=== PATIENT | female | born 1980 | race Caucasian/White ===

== ENCOUNTER 2016-08-24 16:39 | Emergency (ER) | payer BC ==
[2016-08-24 16:51] VITALS: BP 124/74
[2016-08-24 17:43] LABS: CHLORIDE,CL 105 mmol/L (98-107); SODIUM,NA 131 mmol/L (136-145)
[2016-08-24] MEDS ORDERED: Ibuprofen 200 MG Tab PO ONE (18:07)
--- NOTE | 2016-08-26 00:59 | ER ---
Date of Service: 08/24/2016 HISTORY: Mellissa presents to the emergency room with complaints of swelling and discomfort to the posterior aspect of her left ankle, worse with flexion and extension. She states that this started approximately 4 weeks ago and was seen in the clinic twice for this. She states that she was diagnosed with tendinitis but has not had any significant improvement in the discomfort. She did have a D- dimer performed which was negative. She states that when she flexes and extends her foot, it feels as though it "sticks". She states that she has not been experiencing any fever, chills, or erythema to the area. PAST MEDICAL HISTORY: None. MEDICATIONS: None. ALLERGIES: Penicillin, shellfish, and sulfa. REVIEW OF SYSTEMS: General: No fever or chills. Musculoskeletal: Please see history of present illness. She denies any numbness or tingling distal to the area of injury. PHYSICAL EXAMINATION: General: This is a 36-year-old female patient, in no acute distress. Vital Signs: Heart rate is 102, temperature is 37.4, blood pressure is 124/74, respiratory rate 16, O2 saturations 97%. Skin: Warm, pink, and dry. Musculoskeletal: The patient does have tenderness on palpation of the distal Achilles tendon. No evidence of any acute rupture noted. No erythema noted. There is some mild edema. Remainder of her physical examination is within normal limits. ASSESSMENT: Achilles tendinitis. PLAN: The patient will be discharged. I did speak with Orthopedics regarding this and we will put the patient in a Cam walker. She was referred to Physical Therapy. Ibuprofen 600 mg every 6 hours. All questions were answered. MWK: 08/25/2016 18:49:39 MODL: 08/26/2016 00:52:19 /[id number]
== END 2016-08-24 18:19 | disposition home or self-care (01) ==
LOC: VM.ED 16:39
DX: M76.62 Achilles tendinitis, left leg (principal); Z88.0 Allergy status to penicillin; Z91.013 Allergy to seafood
CPT/HCPCS: 36415; 73610; 80053; 84550; 85025; 86140; 99283; A9270

== ENCOUNTER 2017-03-07 09:31 | Emergency (ER) | payer BC ==
--- NOTE | 2017-03-07 10:00 | EDM.PDOC ---
ED HPI GENERAL MEDICAL PROBLEM - General Stated Complaint: POSSIBLE INFLUENZA Time Seen by Provider: 03/07/17 09:40 Source of Information: Reports: Patient History Limitations: Reports: No Limitations - History of Present Illness INITIAL COMMENTS - FREE TEXT/NARRATIVE: Patient comes in today with a 1 day history of body aches, chest congestion, mucus production and low-grade fever 99-100 at the highest. Patient states she' s been around individuals who have been ill but does not recollect anyone have an influenza. Patient denies any nausea or vomiting. States that she does become short of breath with exertion and has a decreased appetite. Pt has no significant medical history. Onset: Sudden Duration: Day(s): Severity: Mild Associated Symptoms: Reports: Cough, cough w sputum, Fever/Chills, Headaches, Malaise. Denies: Diaphoresis, Nausea/Vomiting, Syncope, Weakness - Related Data Allergies Allergy/AdvReac Type Severity Reaction Status Date / Time Penicillins Allergy Hives Verified 08/24/16 16:46 shellfish derived Allergy Other Verified 08/24/16 16:46 Sulfa (Sulfonamide Allergy Hives Verified 08/24/16 16:46 Antibiotics) Home Meds: Home Meds . 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 Denies: Night Sweats, Weight Loss, Weight Gain HEENT: Reports: No Symptoms Respiratory: Reports: Pleuritic Chest Pain, Cough, Sputum Cardiovascular: Denies: Chest Pain, Blood Pressure Problem, Claudication, Edema , Lightheadedness, Orthopnea, Palpitations, PND Endocrine: Reports: No Symptoms GI/Abdominal: Denies: Abdominal Pain, Anorexia, Diarrhea, Difficulty Swallowing , Distension, Flatus, Hematemesis, Hematochezia, Mucous in Stool, Nausea, Stool Incontinence : Reports: No Symptoms Musculoskeletal: Reports: No Symptoms Skin: Reports: No Symptoms Neurological: Reports: No Symptoms ED EXAM, GENERAL - Physical Exam Exam: See Below Exam Limited By: No Limitations General Appearance: Alert, WD/WN Neck: Normal Inspection, Supple, Non-Tender, Full Range of Motion Respiratory/Chest: No Respiratory Distress, Lungs Clear, Normal Breath Sounds, No Accessory Muscle Use, Chest Non-Tender Cardiovascular: Normal Peripheral Pulses, Regular Rate, Rhythm, No Edema, No Gallop, No JVD, No Murmur, No Rub GI/Abdominal: Normal Bowel Sounds, Soft, Non-Tender, No Organomegaly, No Distention, No Abnormal Bruit Back Exam: Normal Inspection, Full Range of Motion Extremities: Normal Inspection, Normal Range of Motion Neurological: Alert, Oriented, CN II-XII Intact, Normal Cognition, Normal Gait, Normal Reflexes, No Motor/Sensory Deficits Psychiatric: Normal Affect, Normal Mood Skin Exam: Dry, Intact, Normal Color, No Rash Course - Vital Signs Last Recorded V/S: Last Vital Signs Temp 37.2 C 03/07/17 09:35 Pulse 100 03/07/17 09:35 Resp 16 03/07/17 09:35 BP 140/91 H 03/07/17 09:35 Pulse Ox 99 03/07/17 09:35 Departure - Departure Time of Disposition: 10:38 Disposition: Home, Self-Care 01 Condition: Good Clinical Impression: URI (upper respiratory infection) Qualifiers: URI type: unspecified viral URI Qualified Code(s): J06.9 - Acute upper respiratory infection, unspecified - Discharge Information Instructions: Upper Respiratory Infection, Adult, [id number] Forms: ED Department Discharge Additional Instructions: increase water intake ensure you are getting enough rest Avoid anyone who may have a low immune system, infants, or elderly May be contagious up to 24 hours after fever has disappeared Follow up with your PCP if not better after 7-8 days with the illness or if fever increases to greater than 103-104 Use OTC tylenol and Ibuprofen for any fever or pain take as prescribed on the bottle to prevent overdosing You are able to take OTC nasal or chest decongestive for symptom relief. If nausea or vomiting arise. Decrease food intake for 24 hours and focus on maintaining good water intake.
[2017-03-07 10:30] VITALS: BP 140/91
== END 2017-03-07 10:55 | disposition home or self-care (01) ==
LOC: VM.ED 09:31
DX: J06.9 Acute upper respiratory infection, unspecified (principal); Z88.0 Allergy status to penicillin; Z91.013 Allergy to seafood; Z88.2 Allergy status to sulfonamides
CPT/HCPCS: 87804; 99283

== ENCOUNTER 2020-06-24 08:28 | Emergency (ER) | payer BC, OTHER ==
[2020-06-24] MEDS ORDERED: Ketorolac 30 MG/ML SDV IVPUSH ONE (08:40)
[2020-06-24] MEDS ORDERED: Ondansetron 4 MG/2 ML SDV IVPUSH ONE (08:40)
--- NOTE | 2020-06-24 09:25 | CR ---
[id number] RAD/RAD Ankle Left 3V Min Exam: RAD Ankle Left 3V Min Indication:INJURY/PAIN. Comparison: 2017. Discussion/Impression: Soft tissue swelling over lateral malleolus. No evidence of acute fracture. Chronically avulsed fracture fragment at the tip of the fibula was present in 2017. Peter Cote MD 06/24/20 0924 Thank you for allowing us to participate in the care of your patient.
[2020-06-24] MEDS ORDERED: Morphine 4 MG/ML Syringe IVPUSH ONE (09:31)
--- NOTE | 2020-06-24 09:37 | EDM.PDOC ---
ED HPI GENERAL MEDICAL PROBLEM - General Chief Complaint: Lower Extremity Injury/Pain Stated Complaint: left ankle pain Time Seen by Provider: 06/24/20 08:51 Source of Information: Reports: Patient History Limitations: Reports: No Limitations - History of Present Illness INITIAL COMMENTS - FREE TEXT/NARRATIVE: Patient presents with swollen left ankle and pain after falling down stairs and twisting her ankle last night around 11 pm. Pain making it difficult to walk. Full but painful ROM. No other complaints. Did not hit her head, no LOC. Onset Date: 06/23/20 Onset Time: 23:00 Duration: Constant Location: Reports: Lower Extremity, Left Quality: Reports: Sharp, Throbbing Severity: Severe Improves with: Reports: None Worsens with: Reports: Movement Associated Symptoms: Reports: No Other Symptoms - Related Data Allergies Allergy/AdvReac Type Severity Reaction Status Date / Time Penicillins Allergy Hives Verified 06/24/20 09:26 prednisone Allergy Rash Verified 06/24/20 09:26 shellfish derived Allergy Other Verified 06/24/20 09:26 Sulfa (Sulfonamide Allergy Hives Verified 06/24/20 09:26 Antibiotics) sulfamethoxazole Allergy Rash Verified 06/24/20 09:26 [From Octra] trimethoprim [From Octra] Allergy Rash Verified 06/24/20 09:26 Home Meds: Home Meds . 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: - Past Surgical History HEENT Surgical History: Reports: Other (See Below) Other HEENT Surgeries/Procedures: Sinus surgery 2015 Female Surgical History: Reports: Section Review of Systems - Review of Systems Review Of Systems: See Below Constitutional: Reports: No Symptoms Eyes: Reports: No Symptoms Ears: Reports: No Symptoms Nose: Reports: No Symptoms Mouth/Throat: Reports: No Symptoms Respiratory: Reports: No Symptoms Cardiovascular: Reports: No Symptoms GI/Abdominal: Reports: No Symptoms Genitourinary: Reports: No Symptoms Musculoskeletal: Reports: Foot Pain (left) Skin: Reports: No Symptoms Neurological: Reports: No Symptoms Psychiatric: Reports: No Symptoms ED EXAM, GENERAL - Physical Exam Exam: See Below Exam Limited By: No Limitations General Appearance: Alert, WD/WN, No Apparent Distress Ears: Normal External Exam, Normal Canal, Hearing Grossly Normal, Normal TMs Ear Exam: Bilateral Ear: Auricle Normal, Canal Normal, TM normal Nose: Normal Inspection, Normal Mucosa, No Blood Throat/Mouth: Normal Inspection, Normal Lips, Normal Teeth, Normal Gums, Normal Oropharynx, Normal Voice, No Airway Compromise Head: Atraumatic, Normocephalic Neck: Normal Inspection, Supple, Non-Tender, Full Range of Motion Respiratory/Chest: No Respiratory Distress, Lungs Clear, Normal Breath Sounds, No Accessory Muscle Use, Chest Non-Tender Cardiovascular: Normal Peripheral Pulses, Regular Rate, Rhythm, No Edema, No Gallop, No JVD, No Murmur, No Rub Back Exam: Normal Inspection, Full Range of Motion, NT Extremities: Normal Inspection, No Pedal Edema, Normal Capillary Refill, Limited Range of Motion, Other (left lateral malleolus has edema, pain to palpation) Neurological: Alert, Oriented, CN II-XII Intact, Normal Cognition, Normal Gait, Normal Reflexes, No Motor/Sensory Deficits Psychiatric: Normal Affect, Normal Mood Skin Exam: Warm, Dry, Intact, Normal Color, No Rash Lymphatic: No Adenopathy Course - Orders/Labs/Meds Orders: Active Orders 24 hr Category Date Time Status Morphine Med 06/24/20 09:31 Once 4 mg IVPUSH ONETIME ONE Meds: Medications Discontinued Medications Generic Name Dose Route Start Last Admin Trade Name Freq PRN Reason Stop Dose Admin Ketorolac Tromethamine 30 mg 06/24/20 08:40 06/24/20 08:47 Ketorolac 30 Mg/Ml Sdv IVPUSH 06/24/20 08:41 30 mg ONETIME ONE Administration Ondansetron HCl 4 mg 06/24/20 08:40 06/24/20 08:49 Ondansetron 4 Mg/2 Ml Sdv IVPUSH 06/24/20 08:41 4 mg ONETIME ONE Administration - Radiology Interpretation Free Text/Narrative:: No fractures identified. Soft tissue swelling to lateral malleolus Departure - Departure Time of Disposition: 09:40 Disposition: Home, Self-Care 01 Condition: Good Clinical Impression: Left ankle sprain - Discharge Information *PRESCRIPTION DRUG MONITORING PROGRAM REVIEWED*: No *COPY OF PRESCRIPTION DRUG MONITORING REPORT IN PATIENT FRANCIS: No Instructions: Ankle Sprain Referrals: PCP,None [Primary Care Provider] - Additional Instructions: 1. Put foot in boot/utilize ankle stirrup brace if boot is to bulky and causes pain 2. Use crutches to keep weight off the foot and ankle 3. Elevate, ice, compress, rest the foot 4. Alternate ibuprofen and tylenol for pain and swelling control 5. Follow up with your primary doctor in 1 week if not improving. May need additional imaging if pain persists 6. Call with any additional questions or concerns - Problem List & Annotations (1) Left ankle sprain SNOMED Code(s): 92604972, [id number] Code(s): S93.402A - SPRAIN OF UNSPECIFIED LIGAMENT OF LEFT ANKLE, INIT ENCNTR Status: Acute Current Visit: Yes Qualifiers: Encounter type: initial encounter Involved ligament of ankle: unspecified ligament Qualified Code(s): S93.402A - Sprain of unspecified ligament of left ankle, initial encounter - My Orders Last 24 Hours: My Active Orders 06/24/20 09:31 Morphine 4 mg IVPUSH ONETIME ONE - Assessment/Plan Last 24 Hours: My Active Orders 06/24/20 09:31 Morphine 4 mg IVPUSH ONETIME ONE Plan: 1. Put foot in boot 2. Use crutches to keep weight off the foot and ankle 3. Elevate, ice, compress, rest the foot 4. Alternate ibuprofen and tylenol for pain and swelling control 5. Follow up with your primary doctor in 1 week if not improving. May need additional imaging if pain persists 6. Call with any additional questions or concerns
[2020-06-24 14:23] VITALS: BP 139/87; PULSE 102
== END 2020-06-24 09:40 | disposition home or self-care (01) ==
LOC: VM.ED 08:28
DX: S93.402A Sprain of unspecified ligament of left ankle, initial encounter (principal); Z88.0 Allergy status to penicillin; Z88.8 Allergy status to other drugs, medicaments and biological substances; Z91.013 Allergy to seafood; Z88.2 Allergy status to sulfonamides; Z88.1 Allergy status to other antibiotic agents; W10.9XXA Fall (on) (from) unspecified stairs and steps, initial encounter
CPT/HCPCS: 73610-LT; 96374; 96375; 99283; 99283-25; J1885; J2270; J2405

== ENCOUNTER 2021-08-13 10:41 | Emergency (ER) | payer OTHER ==
[2021-08-13 10:51] VITALS: BP 132/84; PULSE 90
[2021-08-13 11:33] LABS: ANION GAP 13.6 mmol/L (5-15); CHLORIDE,CL 104 mmol/L (98-107); ESTIMATED GFR 95 mL/min (>=60); SODIUM,NA 139 mmol/L (136-145)
[2021-08-13 11:52] LABS: CORONAVIRUS COVID-19 NAA NEGATIVE (NEGATIVE); RESPIRATORY SYNCYTIAL VIR NAA NEGATIVE (NEGATIVE)
== END 2021-08-13 12:19 | disposition home or self-care (01) ==
LOC: VM.ED 10:41
DX: D50.9 Iron deficiency anemia, unspecified (principal); Z88.0 Allergy status to penicillin; Z91.013 Allergy to seafood; Z88.2 Allergy status to sulfonamides; Z88.8 Allergy status to other drugs, medicaments and biological substances; Z88.1 Allergy status to other antibiotic agents; Z20.822 Contact with and (suspected) exposure to COVID-19
CPT/HCPCS: 0241U; 36415; 80053; 81003; 82728; 83735; 85025; 86140; 99284

== ENCOUNTER 2024-03-11 06:54 | Emergency (ER) | payer OTHER ==
[2024-03-11] MEDS ORDERED: Sodium Chloride 0.9% 10 ML Syringe FLUSH PRN (07:28)
[2024-03-11] MEDS: Lactated Ringers 1,000 ML IV ONE (07:30)
[2024-03-11 07:45] LABS: BASOPHILS PERCENT AUTO 0.3 % (0.2-1.2); EOSINOPHILS ABSOLUTE AUTO 0.1 x10^3/uL (0.0-0.5); EOSINOPHILS PERCENT AUTO 0.7 % (0.0-4.0); IMMATURE GRAN ABSOLUTE AUTO 0.01 x10^3/uL (0.00-0.07); LYMPHOCYTES ABSOLUTE AUTO 1.1 x10^3/uL (1.0-4.8); LYMPHOCYTES PERCENT AUTO 15.9 % (25.0-50.0); MEAN CORPUSCULAR HGB CONC 34.1 g/dL (32.0-36.0); MEAN CORPUSCULAR VOLUME 90.7 fL (78.0-93.0); MONOCYTES ABSOLUTE AUTO 0.3 x10^3/uL (0.0-0.8); MONOCYTES PERCENT AUTO 4.9 % (2.0-11.0); NEUTROPHILS ABSOLUTE AUTO 5.5 x10^3/uL (1.8-7.7); NEUTROPHILS PERCENT AUTO 78.1 % (50.0-80.0); PLATELET COUNT,PLT 217 x10^3/uL (130-400); RED BLOOD CELL COUNT 4.52 x10^6/uL (4.00-5.50)
[2024-03-11 07:52] LABS: APPEARANCE,URINE CLEAR (CLEAR); BILIRUBIN,URINE SMALL (NEGATIVE); COLOR,URINE YELLOW (YELLOW); GLUCOSE,URINE NEGATIVE (NEGATIVE); KETONES,URINE TRACE mg/dL (NEGATIVE); LEUKOCYTE ESTERASE,URINE NEGATIVE (NEGATIVE); NITRITE,URINE NEGATIVE (NEGATIVE); OCCULT BLOOD,URINE TRACE-INTACT (NEGATIVE); PROTEIN,URINE 30 mg/dL (NEGATIVE); UROBILINOGEN,URINE 0.2 EU/dL (0.2)
[2024-03-11 07:58] LABS: C-REACTIVE PROTEIN 3.47 mg/dL (<=0.50); MAGNESIUM 1.9 mg/dL (1.8-2.4)
[2024-03-11 08:00] LABS: INR 0.9 (0.9-1.1); PROTHROMBIN TIME 10.1 SEC (9.6-12.0); PTT,PARTIAL THROMBOPLSTIN TIME 25.3 SEC (23.5-33.2)
[2024-03-11 08:00] LABS: BACTERIA,URINE FEW /HPF (NOT SEEN); MUCUS,URINE FEW /LPF (NOT SEEN); RBC,URINE 0-5 /HPF (NOT SEEN); SQUAMOUS EPITHELIAL CELLS,UR FEW /HPF (NOT SEEN); WBC,URINE 0-5 /HPF (NOT SEEN)
[2024-03-11] MEDS: HYDROmorphone 0.5 MG/0.5 ML Syringe IVPUSH ONE (08:02)
[2024-03-11 08:03] LABS: A/G RATIO 1.17; ALANINE AMINOTRANSFERASE,ALT 25 U/L (14-59); ALBUMIN 4.2 g/dL (3.4-5.0); ALKALINE PHOSPHATASE 86 U/L (46-116); ANION GAP 14.4 mmol/L (5-15); ASPARTATE AMNIOTRANSFERASE,AST 19 U/L (15-37); BILIRUBIN TOTAL 0.5 mg/dL (0.2-1.0); BLOOD UREA NITROGEN,BUN 9 mg/dL (7-18); CALCIUM 9.6 mg/dL (8.5-10.1); CARBON DIOXIDE,CO2 28 mmol/L (21-32); CHLORIDE,CL 103 mmol/L (98-107); CREATININE 0.8 mg/dL (0.55-1.02); ESTIMATED GFR 93 mL/min (>=60); GLUCOSE RANDOM 97 mg/dL (70-99); POTASSIUM,K 3.4 mmol/L (3.5-5.1); PROTEIN TOTAL,TP 7.8 g/dL (6.4-8.2); SODIUM,NA 142 mmol/L (136-145)
[2024-03-11] MEDS: Ondansetron 4 MG/2 ML SDV IVPUSH ONE (08:03)
[2024-03-11 08:08] LABS: LACTIC ACID 0.8 mmol/L (0.4-2.0)
[2024-03-11] MEDS: Iopamidol 612 MG/ML 100 ML Bottle IVPUSH ONE (09:05)
[2024-03-11 11:17] VITALS: BP 133/61; PULSE 94
== END 2024-03-11 10:10 | disposition home or self-care (01) ==
LOC: VM.ED 06:54
DX: K57.32 Diverticulitis of large intestine without perforation or abscess without bleeding (principal); Z88.0 Allergy status to penicillin; Z88.8 Allergy status to other drugs, medicaments and biological substances; Z91.013 Allergy to seafood; Z88.2 Allergy status to sulfonamides; Z79.899 Other long term (current) drug therapy
CPT/HCPCS: 36415; 74177; 80053; 81001; 82150; 83605; 83690; 83735; 85025; 85610; 85730; 86140; 87428-QW; 96361; 96374; 96375; 99284; 99284-25; J2405; J7120; Q9967

== ENCOUNTER 2024-03-15 00:53 | Emergency (ER) | payer OTHER ==
[2024-03-15] MEDS: LORazepam 2 MG/ML SDV IVPUSH ONE ×2 (01:03→01:52)
[2024-03-15 01:12] VITALS: BP 104/88; PULSE 111
[2024-03-15 01:16] LABS: BASOPHILS PERCENT AUTO 0.3 % (0.2-1.2); EOSINOPHILS PERCENT AUTO 0.7 % (0.0-4.0); HEMOGLOBIN 13.4 g/dL (12.0-16.0); IMMATURE GRAN ABSOLUTE AUTO 0.01 x10^3/uL (0.00-0.07); LYMPHOCYTES ABSOLUTE AUTO 2.1 x10^3/uL (1.0-4.8); LYMPHOCYTES PERCENT AUTO 34.5 % (25.0-50.0); MEAN CORPUSCULAR HEMOGLOBIN 31.2 pg (26.0-32.0); MEAN CORPUSCULAR HGB CONC 34.4 g/dL (32.0-36.0); MEAN CORPUSCULAR VOLUME 90.7 fL (78.0-93.0); MONOCYTES ABSOLUTE AUTO 0.4 x10^3/uL (0.0-0.8); MONOCYTES PERCENT AUTO 5.9 % (2.0-11.0); NEUTROPHILS ABSOLUTE AUTO 3.5 x10^3/uL (1.8-7.7); NEUTROPHILS PERCENT AUTO 58.4 % (50.0-80.0); PLATELET COUNT,PLT 250 x10^3/uL (130-400)
[2024-03-15 01:29] LABS: A/G RATIO 1.3; ALBUMIN 3.9 g/dL (3.4-5.0); ANION GAP 14.2 mmol/L (5-15); BILIRUBIN TOTAL 0.4 mg/dL (0.2-1.0); CALCIUM 9.1 mg/dL (8.5-10.1); CREATININE 0.8 mg/dL (0.55-1.02); EST CRCL DRUG DOSING (CG) 77.49 mL/min; MAGNESIUM 1.7 mg/dL (1.8-2.4); POTASSIUM,K 3.2 mmol/L (3.5-5.1); PROTEIN TOTAL,TP 6.9 g/dL (6.4-8.2)
[2024-03-15] MEDS: Potassium Chloride 10 MEQ Tab.ER PO ONE (01:52)
== END 2024-03-15 02:02 | disposition home or self-care (01) ==
LOC: VM.ED 00:53 → SUPCPDRO 00:53 → VM.ED 02:02
DX: K57.92 Diverticulitis of intestine, part unspecified, without perforation or abscess without bleeding (principal); E87.6 Hypokalemia; R25.1 Tremor, unspecified; Z90.710 Acquired absence of both cervix and uterus; Z88.0 Allergy status to penicillin; Z88.2 Allergy status to sulfonamides; Z88.8 Allergy status to other drugs, medicaments and biological substances; Z91.013 Allergy to seafood; Z79.899 Other long term (current) drug therapy
CPT/HCPCS: 36415; 80053; 83605; 83735; 85025; 96374; 96376; 99285; A9270; J2060; 99284

== ENCOUNTER 2024-06-21 12:04 | Emergency (ER) | payer OTHER ==
[2024-06-21] MEDS ORDERED: Sodium Chloride 0.9% 10 ML Syringe FLUSH PRN (12:21)
[2024-06-21 12:22] VITALS: BP 155/91; PULSE 101
[2024-06-21 12:31] LABS: BASOPHILS PERCENT AUTO 0.4 % (0.2-1.2); HEMATOCRIT 41.7 % (33.0-47.0); HEMOGLOBIN 13.9 g/dL (12.0-16.0); IMMATURE GRAN ABSOLUTE AUTO 0.01 x10^3/uL (0.00-0.07); LYMPHOCYTES ABSOLUTE AUTO 1.1 x10^3/uL (1.0-4.8); LYMPHOCYTES PERCENT AUTO 21.5 % (25.0-50.0); MEAN CORPUSCULAR HEMOGLOBIN 30.8 pg (26.0-32.0); MEAN CORPUSCULAR HGB CONC 33.3 g/dL (32.0-36.0); MEAN CORPUSCULAR VOLUME 92.5 fL (78.0-93.0); MONOCYTES ABSOLUTE AUTO 0.2 x10^3/uL (0.0-0.8); NEUTROPHILS ABSOLUTE AUTO 3.9 x10^3/uL (1.8-7.7); NEUTROPHILS PERCENT AUTO 73.9 % (50.0-80.0); PLATELET COUNT,PLT 215 x10^3/uL (130-400); RED BLOOD CELL COUNT 4.51 x10^6/uL (4.00-5.50); WHITE BLOOD CELL COUNT,WBC 5.3 x10^3/uL (4.0-10.0)
[2024-06-21] MEDS: Metoclopramide 10 MG/2 ML SDV IVPUSH ONE (12:33)
[2024-06-21] MEDS: Ketorolac 15 MG/ML SDV IVPUSH ONE (12:33)
[2024-06-21] MEDS: diphenhydrAMINE 50 MG/ML SDV IVPUSH ONE (12:34)
[2024-06-21 12:51] LABS: A/G RATIO 1.3; ALBUMIN 4.3 g/dL (3.4-5.0); BILIRUBIN TOTAL 0.4 mg/dL (0.2-1.0); CREATININE 0.8 mg/dL (0.55-1.02); EST CRCL DRUG DOSING (CG) 84.01 mL/min; POTASSIUM,K 3.6 mmol/L (3.5-5.1); PROTEIN TOTAL,TP 7.6 g/dL (6.4-8.2)
[2024-06-21 12:52] LABS: ANION GAP 15.6 mmol/L (5-15)
== END 2024-06-21 13:23 ==
LOC: VM.ED 12:04 → SUPCPDRO 12:04 → VM.ED 13:23
DX: R51.9 Headache, unspecified (principal); R11.2 Nausea with vomiting, unspecified; Z90.710 Acquired absence of both cervix and uterus; Z88.2 Allergy status to sulfonamides; Z88.0 Allergy status to penicillin; Z88.8 Allergy status to other drugs, medicaments and biological substances; Z91.013 Allergy to seafood
CPT/HCPCS: 70450; 80053; 85025; 96374; 96375; 99284; J1200; J1885; J2765